=== PATIENT | female | born 1985 | race Caucasian/White ===

== ENCOUNTER 2019-02-10 02:21 | Inpatient (IN) | payer MEDICAID ==
[2019-02-10] MEDS ORDERED: IBUPROFEN 600 MG TAB PO (03:30)
[2019-02-10] MEDS ORDERED: OXYTOCIN 30 UNITS/LR 500 ML IV ×2 (03:30→04:00)
[2019-02-10] MEDS ORDERED: CARBOPROST 250 MCG INJ IM ×2 (03:30→04:00)
[2019-02-10] MEDS ORDERED: METHYLERGONOVINE 0.2 MG INJ IM ×2 (03:30→04:00)
[2019-02-10] MEDS ORDERED: MISOPROSTOL 200 MCG TAB PR ×2 (03:30→04:00)
[2019-02-10] MEDS ORDERED: BUTORPHANOL 2 MG INJ IV ×2 (03:30)
[2019-02-10] MEDS ORDERED: LIDOCAINE 1% (MPF) 30 ML INJ INJ (03:30)
[2019-02-10] MEDS: LACTATED RINGER'S 1,000 ML IV (03:47)
[2019-02-10] MEDS: OXYTOCIN 30 UNITS/LR 500 ML IV ×3 (03:49→04:10)
[2019-02-10] MEDS: HYDROCODONE/APAP (5/325) TAB PO (03:53)
[2019-02-10] MEDS: LACTATED RINGER'S 1,000 ML IV* (03:54)
[2019-02-10] MEDS ORDERED: ONDANSETRON 4 MG INJ IV (04:00)
[2019-02-10] MEDS ORDERED: LANOLIN HPA 1 PKT TOP (04:00)
[2019-02-10] MEDS ORDERED: HYDROCODONE/APAP (5/325) TAB PO ×2 (04:00)
[2019-02-10] MEDS ORDERED: DIPHENHYDRAMINE 25 MG CAP PO (04:00)
[2019-02-10] MEDS ORDERED: METHYLERGONOVINE 0.2 MG TAB PO (04:00)
[2019-02-10] MEDS ORDERED: ZOLPIDEM 5 MG TAB PO (04:00)
[2019-02-10] MEDS ORDERED: IBUPROFEN 800 MG TAB PO (04:00)
[2019-02-10] MEDS ORDERED: MAGNESIUM HYDROXIDE 30ML CUP PO (04:00)
[2019-02-10] MEDS ORDERED: NA PHOSPHATE/BIPHOS 133 ML ENEMA PR (04:00)
[2019-02-10 04:03] LABS: ADD MAN DIFF? NO
[2019-02-10 04:14] LABS: WHITE BLOOD COUNT 5.9 10^3/ul (4.8-10.8)
[2019-02-10 04:14] LABS: BASOPHILS % 0.3 % (0.0-2.0); EOSINOPHILS # 0.1 10^3/ul (0.0-0.5); EOSINOPHILS % 2.2 % (0.0-7.0); HEMOGLOBIN 11.9 g/dl (12.0-16.0); LYMPHOCYTES # 2.3 10^3/ul (0.8-2.9); LYMPHOCYTES % 38.2 % (15.0-51.0); MEAN CORPUSCULAR HEMOGLOBIN 27.6 pg (29.0-33.0); MEAN CORPUSCULAR HGB CONC 33.1 g/dl (32.0-37.0); MEAN CORPUSCULAR VOLUME 83.5 fl (82.0-101.0); MEAN PLATELET VOLUME 12.2 fl (7.4-10.4); MONOCYTE # 0.3 10^3/ul (0.3-0.9); MONOCYTES % 5.8 % (0.0-11.0); NEUTROPHIL # 3.1 10^3/ul (1.6-7.5); PLATELET COUNT 191 10^3/UL (140-415); RED BLOOD COUNT 4.31 10^6/ul (4.20-5.40); RED CELL DISTRIBUTION WIDTH 14.8 % (11.5-14.5)
[2019-02-10 04:28] LABS: INR 0.87; PARTIAL THROMBOPLASTIN TIME 26.4 Sec (23.0-35.0); PROTIME 11.9 Sec (11.9-14.9); PT RATIO 0.9
[2019-02-10] MEDS: SENNA/DOCUSATE NA (8.6MG/50MG) TAB PO ×2 (09:04→21:33)
[2019-02-10] MEDS: IBUPROFEN 800 MG TAB PO ×3 (10:48→21:33)
[2019-02-10 15:12] LABS: RAPID PLASMA REAGIN NONREACTIVE (NR)
[2019-02-11] MEDS: IBUPROFEN 800 MG TAB PO ×4 (04:13→21:45)
[2019-02-11 05:03] LABS: ADD MAN DIFF? NO
[2019-02-11 05:08] LABS: WHITE BLOOD COUNT 8.9 10^3/ul (4.8-10.8)
[2019-02-11 05:08] LABS: BASOPHILS % 0.3 % (0.0-2.0); EOSINOPHILS # 0.3 10^3/ul (0.0-0.5); EOSINOPHILS % 2.8 % (0.0-7.0); HEMATOCRIT 31.1 % (37.0-47.0); HEMOGLOBIN 9.9 g/dl (12.0-16.0); LYMPHOCYTES # 2.8 10^3/ul (0.8-2.9); LYMPHOCYTES % 31.1 % (15.0-51.0); MEAN CORPUSCULAR HEMOGLOBIN 27.5 pg (29.0-33.0); MEAN CORPUSCULAR HGB CONC 31.8 g/dl (32.0-37.0); MEAN CORPUSCULAR VOLUME 86.4 fl (82.0-101.0); MEAN PLATELET VOLUME 11.5 fl (7.4-10.4); MONOCYTE # 0.5 10^3/ul (0.3-0.9); MONOCYTES % 5.5 % (0.0-11.0); NEUTROPHIL # 5.3 10^3/ul (1.6-7.5); NEUTROPHILS % 59.5 % (39.0-77.0); PLATELET COUNT 161 10^3/UL (140-415); RED CELL DISTRIBUTION WIDTH 15.2 % (11.5-14.5)
[2019-02-11] MEDS: SENNA/DOCUSATE NA (8.6MG/50MG) TAB PO ×2 (09:55→21:08)
[2019-02-11] MEDS: WITCH HAZEL/GLYCERIN PAD PR (21:08)
[2019-02-11] MEDS: BENZOCAINE 20% 56 ML SPRAY TOP (21:08)
[2019-02-12] MEDS: IBUPROFEN 800 MG TAB PO ×3 (04:15→16:00)
[2019-02-12] MEDS ORDERED: VARICELLA VACCINE LIVE/PF 1,350 UNIT/0.5 ML ML SC* (09:00)
[2019-02-12] MEDS: SENNA/DOCUSATE NA (8.6MG/50MG) TAB PO (09:00)
[2019-02-12] MEDS ORDERED: MEASLES,MUMPS,RUBELLA VACCINE INJ SC* (09:00)
[2019-02-12] MEDS: DIPHTH/TET/ACEL PERTUSS (ADULT) 0.5 ML VIAL IM* (09:04)
== END 2019-02-12 16:10 | disposition home or self-care (01) | DRG 807 ==
LOC: OBT 02:21 → L-D 02:22 → OBT 02:55 → L-D 02:55 → MS1 05:11
PROVIDERS: Obstetrics & Gynecology
PROC: 10E0XZZ Delivery of Products of Conception, External Approach (ICD-10-PCS; principal; 2019-02-10)
DX: O62.3 Precipitate labor (principal); Z37.0 Single live birth; O99.02 Anemia complicating childbirth; D50.9 Iron deficiency anemia, unspecified; Z3A.39 39 weeks gestation of pregnancy
CPT/HCPCS: 85025; 85610; 85730; 86592; 86850; 86900; 86901; 90715